=== PATIENT | male | born 2000 | race Caucasian/White ===

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

== ENCOUNTER → 2021-09-19 | Outpatient (REF) | payer BC ==
[2021-09-19 20:55] LABS: GC DNA AMPLIFICATION NEGATIVE (NEGATIVE)
== END ==
LOC: M LAB REF 16:42
PROVIDERS: ATTEND Physician Assistant
DX: N50.82 Scrotal pain (principal)

== ENCOUNTER → 2024-09-10 | Outpatient (CLI) | payer BC | LOC: M PLARAD 12:44 | PROVIDERS: ATTEND Family Medicine | DX: G44.82 Headache associated with sexual activity (principal); R03.0 Elevated blood-pressure reading, without diagnosis of hypertension ==